=== PATIENT | female | born 1975 | race Caucasian/White ===

== ENCOUNTER 2017-12-30 18:08 | Emergency (ER) | payer OTHER ==
[~2017-12-30] VITALS: Ht 177.8 cm; Wt 95.3 kg
[2017-12-30] MEDS ORDERED: IV NORMAL SALINE 1,000ML 1,000 ML IV SCH (18:10)
[2017-12-30 18:26] VITALS: BP 144/91
--- NOTE | 2017-12-30 18:37 | PHYS DOC ---
Adult General Chief Complaint Chief Complaint: FACE PAIN HPI HPI 42-year-old female presents to the emergency department after tripping and hitting the bridge of her nose causing a nosebleed. Just prior to arrival patient tripped over her son's dumbbell which was on the floor. She struck the bridge of her nose and had a nosebleed from her right nostril. This resolved spontaneously. She does not feel that her nose is particularly tender but came to the emergency department and she was concerned about the bleeding. Denies headache or loss of consciousness. No neck pain or injury. Mild swelling to the bridge of her nose but No other facial swelling or tenderness. Denies jaw pain and no other complaints. Review of Systems Review of Systems Constitutional: Denies fever or chills [] Eyes: Denies change in visual acuity, redness, or eye pain [] HENT: Denies nasal congestion or sore throat [] Respiratory: Denies cough or shortness of breath [] Cardiovascular: No additional information not addressed in HPI [] GI: Denies abdominal pain, nausea, vomiting, bloody stools or diarrhea [] : Denies dysuria or hematuria [] Musculoskeletal: Denies back pain or joint pain [] Integument: Denies rash or skin lesions [] Neurologic: Denies headache, focal weakness or sensory changes [] Endocrine: Denies polyuria or polydipsia [] All other systems were reviewed and found to be within normal limits, except as documented in this note. Current Medications Current Medications Current Medications Medications (Trade) Dose Ordered Sig/Thomas Start Time Stop Time Status Last Admin Dose Admin Sodium Chloride 1,000 ml @ 1,000 mls/hr Q1H 12/30/17 18:10 12/30/17 18:13 DC Physical Exam Physical Exam Constitutional: Well developed, well nourished, no acute distress, non-toxic appearance. Mild soft tissue swelling at the bridge of patient's nose with no bony tenderness or deformity. Patient states her nose looks baseline to her. Small anterior septal mucosal bleed site hemostatic. No oropharyngeal blood. Left Andres normal. No bony tenderness to the face. Nontender TMJ and mandible. Nontender C-spine with normal painless range of motion. No spinal tenderness remainder of exam is benign with a normal full neurologic exam including cranial nerves HENT: Normocephalic, atraumatic, bilateral external ears normal, oropharynx moist, no oral exudates, nose as above Eyes: PERRLA, EOMI, conjunctiva normal, no discharge. [] Neck: Normal range of motion, no tenderness, supple, no stridor. [] Cardiovascular:Heart rate regular rhythm, no murmur [] Lungs & Thorax: Bilateral breath sounds clear to auscultation [] Abdomen: Bowel sounds normal, soft, no tenderness, no masses, no pulsatile masses. [] Skin: Warm, dry, no erythema, no rash. [] Back: No tenderness, no CVA tenderness. [] Extremities: No tenderness, no cyanosis, no clubbing, ROM intact, no edema. [] Neurologic: Alert and oriented X 3, normal motor function, normal sensory function, no focal deficits noted. [] Psychologic: Affect normal, judgement normal, mood normal. [] EKG EKG [] Radiology/Procedures Radiology/Procedures [] Course & Med Decision Making Course & Med Decision Making Pertinent Labs and Imaging studies reviewed. (See chart for details) Signs and symptoms consistent with nasal contusion in a well-appearing patient no evidence of fractures. Hemostatic anterior septal bleeding site. Ice pack and ibuprofen administered. No further workup or treatment indicated. Patient where the possibility of a nondisplaced fracture and that the treatment will be the same. She agrees with outpatient follow-up and strict return precautions given [] Dragon Disclaimer Dragon Disclaimer This electronic medical record was generated, in whole or in part, using a voice recognition dictation system. Departure Departure: Impression: Primary Impression: Nasal injury Additional Impression: Acute anterior epistaxis Disposition: 01 HOME, SELF-CARE Condition: GOOD Referrals: NON,STAFF (PCP) Patient Instructions: Facial or Scalp Contusion, Nosebleed Additional Instructions: You have suffered a nasal injury with a contusion or bruise to the bridge of your nose. As a result he had a nosebleed which is now resolved. While you did not have the type of tenderness typically associated with a fracture, the aware to is possible to have a nondisplaced nasal fracture, but this would be treated the same way as a nasal contusion. Take ibuprofen 800 mg every 6 hours and Tylenol as well if necessary for any discomfort. Use an ice pack on the bridge of her nose as frequently as possible for the next day. This will help minimize the swelling, bruising, and discomfort. Follow-up with your doctor in 2 days and return immediately for new severe worsening symptoms Problem Qualifiers LISA NAIK MD Dec 30, 2017 18:37
[2017-12-30] MEDS ORDERED: IBUPROFEN 800 MG TABLET. PO ONE (19:00)
== END 2017-12-30 18:45 | disposition home or self-care (01) ==
LOC: ER 18:08
DX: S09.92XA Unspecified injury of nose, initial encounter (principal); R04.0 Epistaxis; W01.198A Fall on same level from slipping, tripping and stumbling with subsequent striking against other object, initial encounter; Y93.89 Activity, other specified; Y99.8 Other external cause status; Y92.89 Other specified places as the place of occurrence of the external cause
CPT/HCPCS: 99281; 99282